=== PATIENT | female | born 2000 | race Two or more races ===

== ENCOUNTER 2023-10-14 21:16 | Emergency (ER) | payer SELFPAY ==
[~2023-10-14] VITALS: Ht 165.1 cm; Wt 66.5 kg
[2023-10-14 21:35] VITALS: BP 120/74; PULSE 95; RESP 16; TEMP 98.9
[2023-10-14] MEDS ORDERED: HUR60 MT (23:43)
[2023-10-15] MEDS: IBUPROFEN 600 MG TAB PO ONE (00:27)
[2023-10-15 00:36] VITALS: O2SAT 95
== END 2023-10-15 00:54 | disposition home or self-care (01) ==
LOC: ER 21:16
DX: K02.9 Dental caries, unspecified (principal)